=== PATIENT | male | born 1960 | race Hispanic/Latino ===

== ENCOUNTER 2017-11-11 17:01 | Inpatient (IN) | payer MEDICAID, OTHER ==
[2017-11-11 17:19] VITALS: BMI 25.8
--- NOTE | 2017-11-11 18:20 | C.PDOC ---
History Of Present Illness <Lachelle Lacy - Last Filed: 11/11/17 21:20> <Sujatha Ovalles - Last Filed: 11/11/17 23:47> 57 y/o male, prescreened by Gemma, presents to the ER for detox from alcohol abuse. Patient states that he had his last drink 20 minutes prior to arrival. Patient reports that he drinks 24 cans of beer a day. He does not have any other medical complaints. He also denies any suicidal or homicidal ideations. ( Lachelle Lacy) History Per: Patient History/Exam Limitations: no limitations Onset/Duration Of Symptoms: Hrs Current Symptoms Are (Timing): Still Present <Lachelle Lacy - Last Filed: 11/11/17 21:20> <Sujatha Ovalles - Last Filed: 11/11/17 23:47> Time Seen by Provider: 11/11/17 17:09 Chief Complaint (Nursing): Substance Abuse Past Medical History Reviewed: Historical Data, Nursing Documentation, Vital Signs - Medical History PMH: HTN Surgical History: No Surg Hx Family History: States: No Known Family Hx - Social History Hx Tobacco Use: Yes (1 pack daily) Hx Alcohol Use: Yes Hx Substance Use: No - Immunization History Hx Tetanus Toxoid Vaccination: No Hx Influenza Vaccination: No Hx Pneumococcal Vaccination: No <Lachelle Lacy - Last Filed: 11/11/17 21:20> Vital Signs: Last Vital Signs Temp 99.1 F 11/11/17 21:44 Pulse 77 11/11/17 21:44 Resp 18 11/11/17 21:44 BP 139/71 11/11/17 21:44 Pulse Ox 97 11/11/17 21:44 Review Of Systems Except As Marked, All Systems Reviewed And Found Negative. <Lachelle Lacy - Last Filed: 11/11/17 21:20> Physical Exam - Physical Exam Appears: No Acute Distress Skin: Normal Color, Warm Head: Atraumatic, Normacephalic Nose: Normal Oral Mucosa: Moist Neck: Supple Chest: Symmetrical Cardiovascular: Rhythm Regular Respiratory: Normal Breath Sounds, No Accessory Muscle Use Neurological/Psych: Oriented x3, Normal Speech, Normal Cognition <Lachelle Lacy - Last Filed: 11/11/17 21:20> ED Course And Treatment - Laboratory Results Result Diagrams: 11/11/17 18:17 11/11/17 21:04 O2 Sat by Pulse Oximetry: 100 (RA) Pulse Ox Interpretation: Normal <Lachelle Lacy - Last Filed: 11/11/17 21:20> - Laboratory Results Result Diagrams: 11/11/17 18:17 11/11/17 21:04 Interpretation Of Abnormal: Mild hyponatremia, mild hypokalemia, mild hypocalcemia. <Sujatha Ovalles - Last Filed: 11/11/17 23:47> Medical Decision Making <Lachelle Lacy - Last Filed: 11/11/17 21:20> <Sujatha Ovalles E - Last Filed: 11/11/17 23:47> Medical Decision Making: Impression: Detox from Alcohol Abuse Plan: -- Medically clear patient -- Admit Patient to Detox (Lachelle Lacy) Disposition - Disposition Disposition Time: 21:21 <Lachelle Lacy - Last Filed: 11/11/17 21:20> - Disposition Disposition Time: 23:47 <Sujatha Ovalles - Last Filed: 11/11/17 23:47> - Disposition Disposition: HOSPITALIZED Condition: STABLE - Clinical Impression Clinical Impression: Alcohol use disorder - PA / BUCCARO / Resident Statement / has reviewed & agrees with the documentation as recorded. - Scribe Statement The provider has reviewed the documentation as recorded by the Scribe <Lachelle Lacy - Last Filed: 11/11/17 21:20> - PA / BUCCARO / Resident Statement / has reviewed & agrees with the documentation as recorded. <Sujatha Ovalles - Last Filed: 11/11/17 23:47> - Scribe Statement Lino Arredondo Provider Attestation All medical record entries made by the Scribe were at my direction and personally dictated by me. I have reviewed the chart and agree that the record accurately reflects my personal performance of the history, physical exam, medical decision making, and the department course for this patient. I have also personally directed, reviewed, and agree with the discharge instructions and disposition. (Lachelle Lacy) Physician Patient Turnover Patient Signed Over To: Sujatha Ovalles Handoff Comments: pending sobriety, will need to be admitted <Lachelle Lacy - Last Filed: 11/11/17 21:20> Decision To Admit <Lachelle Lacy - Last Filed: 11/11/17 21:20> - Pt Status Changed To: Hospital Disposition Of: Inpatient - Admit Certification Admit to Inpatient:: After my assessment, the patient will require hospitalization for at least two midnights. This is because of the severity of symptoms shown, intensity of services needed, and/or the medical risk in this patient being treated as an outpatient. - InPatient: Physician Admission Certification: I certify that this patient requires 2 or more midnights of care for the following reason:: Detox. - . Bed Request Type: Detox Admitting Physician: Rosetta Hartmann <Sujatha Ovalles - Last Filed: 11/11/17 23:47> - . Patient Diagnosis: Alcohol use disorder
[2017-11-11 18:23] LABS: URINE BACTERIA RARE (<OCC); URINE BILIRUBIN NEGATIVE (NEGATIVE); URINE BLOOD NEGATIVE (NEGATIVE); URINE COLOR Straw (YELLOW); URINE GLUCOSE (UA) NORMAL (Normal); URINE KETONE NEGATIVE (NEGATIVE); URINE LEUKOCYTE ESTERASE NEG Leu/uL (Negative); URINE PROTEIN NEGATIVE (NEGATIVE); URINE UROBILINOGEN NORMAL mg/dL (0.2-1.0)
[2017-11-11 18:35] LABS: ALCOHOL SERUM 252 mg/dl (0-10); ALKALINE PHOSPHATASE 61 U/L (38-126); ALT/SGPT 56 U/L (21-72); AST/SGOT 82 U/L (17-59); BILIRUBIN,TOTAL 0.8 mg/dL (0.2-1.3); BLOOD UREA NITROGEN 5 mg/dL (9-20); CALCIUM 7.9 mg/dl (8.6-10.4); CARBON DIOXIDE 29 mmol/L (22-30); CHLORIDE 88 mmol/L (98-107); GFR AFRICAN-AMERICAN > 60; GLUCOSE,RANDOM 119 mg/dL (75-110); POTASSIUM 3.4 mmol/L (3.6-5.2); SODIUM 126 mmol/L (132-148); TOTAL PROTEIN 6.2 g/dL (6.3-8.3)
[2017-11-11 18:36] LABS: ALB/GLOB RATIO 1.8 (1.0-2.1)
[2017-11-11 18:37] LABS: BASO % 0.4 % (0.0-2.0); EOS # 0.1 K/uL (0.0-0.7); EOS % 0.6 % (0.0-4.0); HEMATOCRIT 40.4 % (35.0-51.0); LYMPH # 1.3 K/uL (1.0-4.3); LYMPH % 13.3 % (20.0-40.0); MEAN CORPUSCULAR HEMOGLOBIN 31.7 pg (27.0-31.0); MEAN CORPUSCULAR HGB CONC 35.8 g/dL (33.0-37.0); MONO # 0.9 K/uL (0.0-0.8); MONO % 9.4 % (0.0-10.0); NRBC % 0.1 % (0.0-2.0); RED CELL DISTRIBUTION WIDTH 14.5 % (11.5-14.5); WHITE BLOOD COUNT 9.6 K/uL (4.8-10.8)
[2017-11-11 18:44] LABS: MEAN CELL VOLUME 88.4 fL (80.0-94.0)
[2017-11-11] MEDS ORDERED: Sodium Chloride 0.9% 1,000 ML IV STA (18:52)
[2017-11-11] MEDS ORDERED: Sodium Chloride 0.9% 1,000 ML ONE (19:14)
[2017-11-11 21:18] LABS: BLOOD UREA NITROGEN 4 mg/dL (9-20); CALCIUM 7.3 mg/dl (8.6-10.4); CARBON DIOXIDE 28 mmol/L (22-30); CHLORIDE 91 mmol/L (98-107); GFR AFRICAN-AMERICAN > 60; GLUCOSE,RANDOM 123 mg/dL (75-110); POTASSIUM 3.2 mmol/L (3.6-5.2); SODIUM 127 mmol/L (132-148)
[2017-11-11] MEDS ORDERED: Potassium Chloride 20 mEq ER Tab PO STA (21:22)
[2017-11-11] MEDS ORDERED: Potassium Chloride 20 mEq ER Tab PO ONE (21:28)
--- NOTE | 2017-11-12 07:26 | PCM.BM ---
<Parth Dominguez - Last Filed: 11/12/17 07:25> Treatment Plan Problems - Problems identified on initial assessmt Alcohol Abuse Date Initiated: 11/12/17 Time Initiated: 00:30 Assessment reference: NA Status: Active Treatment assets and liabiliti Patient Assests: self-reliant, ADL independent, good support system, negotiates basic needs Patient Liabilities: substance abuse (ETOH), medical problems (Hypertension) - Milieu Protocol Maintain good personal hygiene: daily Encourage regular showers, daily Remind patient to perform daily oral care Maintain personal safety: every shift Educate patient to report safety concerns to staff, every shift Monitor environment for contraband/sharps Medication safety: Monitor for expected outcome, potential side effects: every shift, Assess barriers to learning: every shift, Assess readiness for medication education: every shift <Issac Kinsey - Last Filed: 11/12/17 15:11> - Diagnosis (1) Alcohol use disorder Status: Acute Interventions: 11/12/17 15:11 * Assess 7x/week regarding severity of withdrawal * Educate regarding risks, benefits, side effects and alternatives of medications * Use Motivational Interviewing for abstinence * Use CBT for relapse prevention * Medication management for withdrawal symptoms * Encourage medication assisted treatment *
[2017-11-12 08:29] LABS: ALB/GLOB RATIO 1.1 (1.0-2.1); ALKALINE PHOSPHATASE 65 U/L (38-126); ALT/SGPT 61 U/L (21-72); AST/SGOT 84 U/L (17-59); BLOOD UREA NITROGEN 8 mg/dL (9-20); CALCIUM 8.5 mg/dl (8.6-10.4); CARBON DIOXIDE 31 mmol/L (22-30); CHLORIDE 93 mmol/L (98-107); GFR AFRICAN-AMERICAN > 60; GLUCOSE,RANDOM 106 mg/dL (75-110); POTASSIUM 4.3 mmol/L (3.6-5.2); SODIUM 131 mmol/L (132-148); TOTAL PROTEIN 7.1 g/dL (6.3-8.3)
--- NOTE | 2017-11-12 10:45 | RAD ---
PROCEDURE: Radiographs of the Lumbar Spine. HISTORY: fall, low back pain COMPARISON: No prior. FINDINGS: BONES: There is mild dextroscoliosis in the lumbar spine. There is normal alignment of the lumbar vertebral bodies. There is normal lumbar lordosis. There is an age indeterminate mild superior endplate compression deformity in the L2 vertebral body. There is no spondylolysis or spondylolisthesis. Bone mineralization is normal. DISC SPACES: There is mild multilevel degenerative disc disease with anterior osteophytes, reduced disc heights and multilevel facet arthropathy, worse at L5-S1. OTHER FINDINGS: There are no pathologic soft tissue calcifications. Both sacroiliac joints are normal. IMPRESSION: Age indeterminate mild superior endplate compression deformity in the L2 vertebral body. Mild multilevel degenerative disc disease, worse at L5-S1. Mild dextroscoliosis in the lumbar spine.
[2017-11-12] MEDS: Multiple Vitamins Tab PO SCH (10:47)
--- NOTE | 2017-11-12 11:26 | PCM.PSYCH ---
Initial Psychiatric Evaluation - Initial Psychiatric Evaluation Type of Admission: Voluntary Chief Complaint (in patient's own words): " I need really need to make a change"----> Alcohol Detox History of Present Illness and Precipitating Events: Initial Evaluation: 34 minutes This is a 57 year old male, (who was for 25 years old), has 3 children, lives with his girlfriend (Shanice) in [place], [place]. 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 Patient had an education level up to 12th grade. Patient reports use of Alcohol for a long time; with his longest sobriety (2 years) and recent sobriety was for 9 months. Patient started to use alcohol at the age of 12, which then became problematic by age 14. 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 Patient states that he has been drinking a case of budweiser daily for the past 3-4 weeks due to loss of work. Patient's last drink was a case of budweiser 24 hours before coming to the hospital. Patient states he wakes up to drink and the only time he is not drinking is when he is sleeping. Patient admits to history of shakes. Patient has been to detox 5 times but has never been to rehabilitation Patient states that he attends AA at [place] ( [facility]) and Completely sober in [place]. Patient was last at AA meeting 3 months ago Patient denies any other substance use Patient last use of marijuana was 5 years ago Patient smokes 1.5 PPD to 2PPD of cigarettes daily for the past 10-15 years and currently does not want a nicotine patch Past psych history: Anxiety ( Patient states that he was taking Zoloft but did not like the effects, therefore he discontinued it with a physician's recommendation) Family psych history: Father() and sister----> Alcohol abuse and depression Medical history: Hypertension ( Patient states that he takes lisinopril 5mg PO daily) Current Medications: Active Medications Generic Name Dose Route Start Last Admin Trade Name Freq PRN Reason Stop Dose Admin Chlordiazepoxide 25 mg 11/12/17 03:26 11/12/17 10:47 Librium PO 25 mg Q6H PRN Administration Alcohol Withdrawal Chlordiazepoxide 50 mg 11/12/17 12:00 Librium PO 11/17/17 11:59 Q6 CASTILLO Taper Clonidine HCl 0.1 mg 11/12/17 06:35 11/12/17 06:47 Catapres PO 0.1 mg Q8H PRN Administration Withdrawal Symptoms, HTN Folic Acid 1 mg 11/12/17 10:30 11/12/17 10:47 Folic Acid PO 1 mg DAILY CASTILLO Administration Multivitamins 1 tab 11/12/17 10:30 11/12/17 10:47 Hexavitamin PO 1 tab DAILY CASTILLO Administration Thiamine HCl 100 mg 11/12/17 10:30 11/12/17 10:47 Vitamin B1 Tab PO 100 mg DAILY CASTILLO Administration Trazodone HCl 100 mg 11/12/17 10:21 Desyrel PO HS PRN Insomnia Past Psychiatric History - Past Psychiatric History Pertinent Medical Hx (Current Medical&Sleep Prob, Allergies): Allergies Allergy/AdvReac Type Severity Reaction Status Date / Time Penicillins Allergy Intermediate Verified 11/11/17 17:18 Lisinopril [Prinivil] 5 mg PO DAILY 11/11/17 Review of Systems - Constitutional Constitutional: Sweats - Neurological Neurological: Lack of Coordination. absent: Abnormal Speech - Psychiatric Psychiatric: Anxiety. absent: Auditory Hallucinations, Hallucinations, Visual Hallucinations, Tactile Hallucinations Mental Status Examination - Personal Presentation Personal Presentation: Impairment in gait Additional comments: Unsteady Gait - Motor Activity Motor Activity: Calm Additional comments: Patient is with tremors - Reliability in Providing Information Reliability in Providing Information: Fair - Speech Speech: Organized - Mood Mood: Anxious - Formal Thought Process Formal Thought Process: No Impairment - Obsessions/Compulsions Obsessions: No Compulsions: No - Cognitive Functions Orientation: Person, Place, Situation, Time Sensorium: Alert Attention/Concentration: Attentive Estimate of Intelligence: Average Judgement: Intact, as evidence by: Insight regarding need for hospitalization Memory: Recent intact, as evidence by: Ability to recall events of the day - Risk Risk: Withdrawal, Falls - Strength & Assets Inventory Strength & Assets Inventory: Cooperative DSM 5 DX - DSM 5 DSM 5 Diagnosis: Alcohol Withdrawal Alcohol use disorder--> Severe - Recommended/Plan of Treatment Treatment Recommendations and Plan of Treatment: Librium taper Clonidine 0.1mg PO Q8H PRN Folic acid 1mg PO daily Multivitamins 1 tab PO daily Thiamine 100mg PO daily Trazadone 100mg PO HS As needed medications Attend groups and activities Supportive therapy and psychoeducation [place] for abstinence CBT for relapse prevention Encourage MAT Refer to rehab or IOP, and self-help groups Projected ELOS: 4 Prognosis: Good with treatment Discharge Plan and Discharge Criteria: Refer to rehab or IOP, and self-help groups 34 minutes
[2017-11-13] MEDS: Multiple Vitamins Tab PO SCH (10:03)
[2017-11-13 13:42] VITALS: RESP 18
--- NOTE | 2017-11-13 13:53 | PCM.PYCHPN ---
Psychiatric Progress Note - Psychiatric Progress Note Patient seen today, length of contact: 16 minutes Patient Chief Complaint: "I'm feeling better now" Problems Identified/Issues Discussed: The pt is seen, and evaluated. chart reviewed, case discussed with staff. The pt is compliant with medications and reports no side-effects. Patient stated that he is feeling better. Symptoms are improving but needs more time to stabilize. After care discussed, support and psychoeducation given. Diagnostic Results: Alcohol dependence, severe, withdrawal symptoms Medication Change: Yes (Librium taper) Medical Record Reviewed: Yes Mental Status Examination - Cognitive Function Orientation: Person, Place, Situation, Time Memory: Intact - Mood Mood: Anxious - Affect Affect: Constricted - Speech Speech: Appropriate - Formal Thought Process Formal Thought Process: No Impairment Psychotic Thoughts and Behaviors: Denied Additional comments: Anxious but cooperative - Suicidal Ideation Suicidal Ideation: No - Homicidal Ideation Homicidal Ideation: No Goal/Treatment Plan - Goal/Treatment Plan Need for Continued Stay: Remain at risks for inpatient hospitalization, Discharge may exacerbated symptoms, Severe functional impairment Progress Toward Problem(s) and Goals/Treatment Plan: Librium taper Clonidine 0.1mg PO Q8H PRN Folic acid 1mg PO daily Multivitamins 1 tab PO daily Thiamine 100mg PO daily Trazadone 100mg PO HS As needed medications Attend groups and activities Supportive therapy and psychoeducation [place] for abstinence CBT for relapse prevention Encourage MAT Refer to rehab or IOP, and self-help groups Estimated Date of D/C: 11/16/17 - Smoking Cessation Smoking Cessation Initiated: Yes
[2017-11-14] MEDS: Multiple Vitamins Tab PO SCH (10:52)
--- NOTE | 2017-11-14 12:29 | PCM.PYCHPN ---
Psychiatric Progress Note - Psychiatric Progress Note Patient seen today, length of contact: 16 minutes Patient Chief Complaint: "I am anxious" Problems Identified/Issues Discussed: The pt is seen, chart reviewed, case discussed with staff. The pt is compliant with medications and reports no side-effects. Symptoms are improving but needs more time to stabilize. After care discussed, support and psychoeducation given. labs checked and improved, except for LFTs yet Vit D low Medication Change: Yes (Librium taper) Medical Record Reviewed: Yes Mental Status Examination - Cognitive Function Orientation: Person, Place, Situation, Time Memory: Intact Attention: WNL Concentration: WNL Association: WNL Fund of Knowledge: WNL - Mood Mood: Anxious - Affect Affect: Constricted - Speech Speech: Appropriate - Formal Thought Process Formal Thought Process: No Impairment - Suicidal Ideation Suicidal Ideation: No - Homicidal Ideation Homicidal Ideation: No Goal/Treatment Plan - Goal/Treatment Plan Need for Continued Stay: Remain at risks for inpatient hospitalization, Discharge may exacerbated symptoms, Severe functional impairment Progress Toward Problem(s) and Goals/Treatment Plan: Continue medications Support and psychoeducation daily Attend groups and activities daily After care planning by counselor Start Vit D Estimated Date of D/C: 11/16/17
[2017-11-14 14:11] LABS: ALB/GLOB RATIO 1.4 (1.0-2.1); ALKALINE PHOSPHATASE 59 U/L (38-126); ALT/SGPT 93 U/L (21-72); AST/SGOT 88 U/L (17-59); BILIRUBIN,TOTAL 0.7 mg/dL (0.2-1.3); BLOOD UREA NITROGEN 17 mg/dL (9-20); CALCIUM 8.8 mg/dl (8.6-10.4); CARBON DIOXIDE 30 mmol/L (22-30); CHLORIDE 96 mmol/L (98-107); GFR AFRICAN-AMERICAN > 60; GLUCOSE,RANDOM 105 mg/dL (75-110); MAGNESIUM 1.8 mg/dL (1.6-2.3); SODIUM 132 mmol/L (132-148); TOTAL PROTEIN 6.4 g/dL (6.3-8.3)
[2017-11-14] MEDS ORDERED: Ergocalciferol 50,000 Intl Units Cap PO SCH (18:15)
[2017-11-15] MEDS: Multiple Vitamins Tab PO SCH (10:26)
--- NOTE | 2017-11-15 13:38 | PCM.PYCHPN ---
Psychiatric Progress Note - Psychiatric Progress Note Patient seen today, length of contact: 16 minutes Patient Chief Complaint: "I'm feeling better now" Problems Identified/Issues Discussed: The pt is seen, and evaluated. chart reviewed, case discussed with staff. The pt is compliant with medications and reports no side-effects. Patient stated that he is feeling better. patient stated that he has a plan to start that AA meetings after the discharge from the unit. Symptoms are improving but needs more time to stabilize. After care discussed, support and psychoeducation given. Diagnostic Results: lab results reviewed DSM 5 Symptoms Update: Alcohol dependence, severe, withdrawal symptoms Medication Change: Yes (Librium taper) Medical Record Reviewed: Yes Mental Status Examination - Cognitive Function Orientation: Person, Place, Situation, Time Memory: Intact Attention: WNL Concentration: WNL Association: WNL Fund of Knowledge: WN Decription of patient's judgement and insights: good/good Addtional comments: he is calm and cooperative - Mood Mood: Anxious - Affect Affect: Constricted - Speech Speech: Appropriate - Formal Thought Process Formal Thought Process: No Impairment Psychotic Thoughts and Behaviors: denied - Suicidal Ideation Suicidal Ideation: No Plan: denied - Homicidal Ideation Homicidal Ideation: No Plan: denied Goal/Treatment Plan - Goal/Treatment Plan Need for Continued Stay: Remain at risks for inpatient hospitalization, Discharge may exacerbated symptoms, Severe functional impairment Progress Toward Problem(s) and Goals/Treatment Plan: Librium taper Clonidine 0.1mg PO Q8H PRN Folic acid 1mg PO daily Multivitamins 1 tab PO daily Thiamine 100mg PO daily Trazadone 100mg PO HS As needed medications Attend groups and activities Supportive therapy and psychoeducation [place] for abstinence CBT for relapse prevention Encourage MAT Refer to rehab or IOP, and self-help groups Estimated Date of D/C: 11/16/17 - Smoking Cessation Smoking Cessation Initiated: Yes
[2017-11-15 14:15] VITALS: PULSE 66
[2017-11-15 15:52] VITALS: BP 150/80; TEMP 98.3; O2SAT 100
--- NOTE | 2017-11-15 20:17 | PCM.PYCHDC ---
Mental Status Examination - Mental Status Examination Orientation: Person, Place, Situation, Time Memory: Intact Mood: Neutral Affect: Constricted Speech: Appropriate Attention: WNL Concentration: WNL Association: WNL Fund of Knowledge: WNL Formal Thought Process: No Impairment Description of patient's judgement and insight: good/good Psychotic Thoughts and Behaviors: denied Suicidal Ideation: No Current Homicidal Ideation?: No Discharge Summary - Discharge Note Reason for Hospitalization: This is a 57 year old male, (who was for 25 years old), has 3 children, lives with his girlfriend (Shanice) in [place], [place]. 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 Patient had an education level up to 12th grade. Patient reports use of Alcohol for a long time; with his longest sobriety (2 years) and recent sobriety was for 9 months. Patient started to use alcohol at the age of 12, which then became problematic by age 14. 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 Patient states that he has been drinking a case of budweiser daily for the past 3-4 weeks due to loss of work. Patient's last drink was a case of budweiser 24 hours before coming to the hospital. Patient states he wakes up to drink and the only time he is not drinking is when he is sleeping. Patient admits to history of shakes. Patient has been to detox 5 times but has never been to rehabilitation Patient states that he attends AA at [place] ( [facility]) and Completely sober in [place]. Patient was last at AA meeting 3 months ago Patient denies any other substance use Patient last use of marijuana was 5 years ago Patient smokes 1.5 PPD to 2PPD of cigarettes daily for the past 10-15 years and currently does not want a nicotine patch Past psych history: Anxiety ( Patient states that he was taking Zoloft but did not like the effects, therefore he discontinued it with a physician's recommendation) Family psych history: Father() and sister----> Alcohol abuse and depression Medical history: Hypertension ( Patient states that he takes lisinopril 5mg PO daily) Consultations:: List each consultation separately and include: 1. Reason for request. 2. Findings. 3. Follow-up Summary of Hospital Course include:: 1. Description of specific treatment plan utilized for patients during their course of treatmen. 2. Summarize the time- course for resolution of acute symptoms and/or regressed behaviors. 3. Describe issues identified and worked on during hospitalization. 4. Describe medication utilized. 5. Describe medical problems identified and treated. 6. Reassessment of suicide risk Summary of Hospital Course: The pt was admitted and started on treatment with psychotherapy, support, psychoeducation and medications. Pt did not completed his detox treatment and left AMA. Pt was seen by the oncall resident, who encouraged and discussed consequences of earlier discharge including relapse, withdrawal symptoms, DT, seizure, risk of fall, and even . Pt verbalized understanding and stated that he does not want to stay in the hospital and wants to leave. He stated that he will return to hospital if it is needed. In the morning he was seen by this MD and he stated that he is motivated to complete his detox, as well as he will start AA meeting and will find a sponsor to stay away from etoh. At the time of discharge he denied SI, HI, intent or plan. He denied perceptual disturbances. CT and CBT used. The pt attended groups and activities, as well as milieu therapy. All the risks and benefits of medications are discussed and the patient understood and agreed. After care discussed with the patient. Medication reconciliation was completed. No prescription was given, because pt has antihypertensive medication at home as well he will f/u with his PMD - Diagnosis (1) Alcohol use disorder, severe, dependence Current Visit: Yes Status: Resolved (2) Alcohol withdrawal syndrome without complication Current Visit: Yes Status: Resolved - Final Diagnosis (DSM 5) Condition upon Discharge: STABLE Disposition: AGAINST MEDICAL ADVICE Follow-up Treatment Plan: Continue below medications after discharge. Follow after care plan as discussed. Recommend to f/u with AA meeting, find a sponsor, as well as walk in to out pt rehab program for etoh Use relapse prevention copying skills Return to ER or call 911 if suicidal, homicidal or symptoms relapse. Stay away from stress, alcohol and drugs. See primary doctor within 4-5 days. - Smoking Cessation Smoking Cessation Medication prescribed: Yes - Antipsychotic Medications Pt discharged on 2 or more routine antipsychotic medications: No
--- NOTE | 2017-11-15 20:46 | CP.PCM.PN ---
Subjective - Date & Time of Evaluation Date of Evaluation: 11/15/17 Time of Evaluation: 20:43 - Subjective Subjective: Patient was seen and examined by me. The nurse called me because the patient wanted to leave [facility]. He had got into an argument with the staff and other patients. He is here for alcohol use disorder currently on day three of a librium taper. The symptoms of alcohol w/d were explained to the patient in detail. He was encouraged to stay multiple time. These effects included seizure , hallucinations and . He understood these risks and still wanted to leave. He denies any homicidal or suicidal ideations. Objective - Vital Signs/Intake and Output Vital Signs (last 24 hours): Temp Pulse Resp BP Pulse Ox 98.3 F 66 18 150/80 100 11/15/17 15:52 11/15/17 15:52 11/15/17 15:52 11/15/17 15:52 11/15/17 15:52 - Labs Labs: 11/11/17 18:17 11/14/17 13:49 PT 10.8 SECONDS (9.7-12.2) 11/11/17 19:06 INR 1.0 11/11/17 19:06 APTT 32 SECONDS (21-34) 11/11/17 19:06
== END 2017-11-15 20:20 | disposition left against medical advice (07) | DRG 749 ==
LOC: C.ER 17:01 → C.9E 23:47 → C.7D 11-12 00:10
PROVIDERS: ADMIT Psychiatry & Neurology Psychiatry; ATTEND Psychiatry & Neurology Psychiatry
PROC: HZ2ZZZZ Detoxification Services for Substance Abuse Treatment (ICD-10-PCS; principal; 2017-11-11)
PROC: HZ52ZZZ Individual Psychotherapy for Substance Abuse Treatment, Cognitive-Behavioral (ICD-10-PCS; 2017-11-11)
PROC: HZ59ZZZ Individual Psychotherapy for Substance Abuse Treatment, Supportive (ICD-10-PCS; 2017-11-11)
DX: F10.230 Alcohol dependence with withdrawal, uncomplicated (principal); R56.9 Unspecified convulsions; I10 Essential (primary) hypertension; F17.210 Nicotine dependence, cigarettes, uncomplicated; F12.90 Cannabis use, unspecified, uncomplicated; F41.9 Anxiety disorder, unspecified; Z81.8 Family history of other mental and behavioral disorders